=== PATIENT | female | born 1940 | race Caucasian/White ===

== ENCOUNTER 2017-09-03 16:01 | Emergency (ER) | payer OTHER, MEDICAID ==
[~2017-09-03] VITALS: Ht 160 cm; Wt 63.0 kg
[~2017-09-03 16:01] MED LIST: ESTR0.5T PO; PROG100C15 PO
--- NOTE | 2017-09-03 16:04 | NUR ---
PT BIBRA FROM HOME TO E BED 12. PER REPORT HERE FOR FREQUENT FALLS SINCE MONDAY. HX OF STROKE AND ALZHEIMERS. GOWNED AND PLACED ON MONITOR. NAD NOTED. AWAITING MD FERGUSON.
--- NOTE | 2017-09-03 16:31 | NUR ---
RADIOLOGY AT BEDSIDE FOR CHEST XRAY.
[2017-09-03 16:35] LABS: BASOPHILS % (AUTO) 0.3 % (0.0-2.0); EOSINOPHILS % (AUTO) 0.3 % (0.0-6.0); HEMATOCRIT 40 % (33-45); HEMOGLOBIN 13.5 g/dL (11.5-14.8); LYMPHOCYTES % (AUTO) 10.3 % (20.0-44.0); MEAN CORPUSCULAR HEMOGLOBIN 28 PG (26.0-33.0); MEAN CORPUSCULAR HGB CONC 34 g/dl (31.0-36.0); MEAN CORPUSCULAR VOLUME 83 fL (82-100); MONOCYTES # (AUTO) 0.4 /CMM (0.1-1.30); MONOCYTES % (AUTO) 4.3 % (2.0-12.0); NEUTROPHILS # (AUTO) 8.1 /CMM (1.8-8.9); NEUTROPHILS % (AUTO) 84.8 % (43.0-81.0); PLATELET COUNT (AUTO) 267 /CMM (150-450); RDW COEFFICIENT OF VARIATION 12.4 (11.5-15.0); RED BLOOD CELL COUNT(AUTO) 4.85 MIL/uL (4.0-5.2); WHITE BLOOD COUNT (AUTO) 9.5 K/uL (4.3-11.0)
[2017-09-03 16:46] LABS: CALCIUM, SERUM 9.1 mg/dL (8.5-10.1); CARBON DIOXIDE 27 mmol/L (21-32); CHLORIDE 107 mmol/L (98-107); GLUCOSE 155 mg/dL (74-106); POTASSIUM 3.2 mmol/L (3.5-5.1); SODIUM SERUM 143 mmol/L (136-145); UREA NITROGEN, BLOOD 19 mg/dL (7-18)
[2017-09-03 16:49] LABS: INR 1.09 (0.87-1.13); PROTHROMBIN TIME 11.3 SECS (9.5-12.7)
[2017-09-03] MEDS ORDERED: LORAZEPAM INJ 2 MG/ML VIAL ONE (16:49)
[2017-09-03] MEDS: LORAZEPAM INJ 2 MG/ML VIAL IV ONE (16:51)
--- NOTE | 2017-09-03 16:51 | NUR ---
PT IS AGITATED AND RESTLESS. 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 DR FINLEY AWARE. VERBAL ORDER FOR ATIVAN 1MG IVP. VERBAL ORDER CARRIED OUT.
[2017-09-03 16:52] LABS: ALANINE AMINOTRANSFERASE 22 U/L (12-78); ALBUMIN 3.7 g/dL (3.4-5.0); ALKALINE PHOSPHATASE 101 U/L (46-116); ASPARTATE AMINOTRANSFERASE 23 U/L (15-37); BILIRUBIN,DIRECT 0.1 mg/dL (0.0-0.2); BILIRUBIN,TOTAL 0.4 mg/dL (0.2-1.0); TOTAL PROTEIN, SERUM 7.3 g/dL (6.4-8.2)
[2017-09-03 16:57] LABS: TROPONIN I < 0.017 ng/mL (0.00-0.056)
--- NOTE | 2017-09-03 17:19 | NUR ---
PT TO RADIOLOGY FOR HEAD CT SCAN VIA [facility].
--- NOTE | 2017-09-03 17:29 | NUR ---
CALLED [facility], AWAITING FOR A CALL BACK FROM CRISTAL SANTOS.
[2017-09-03 18:14] LABS: APPEARANCE,URINE Clear (CLEAR); BILIRUBIN,URINE SMALL (NEGATIVE); BLOOD, URINE Negative Ery/uL (NEGATIVE); COLOR,URINE Yellow (YELLOW); KETONES,URINE Trace (NEGATIVE); LEUKOCYTE ESTERASE ,URINE Negative (NEGATIVE); NITRITE, URINE Negative (NEGATIVE); PROTEIN,URINE 30 mg/dl (NEGATIVE); UGLUCOSE Negative (NEGATIVE)
--- NOTE | 2017-09-03 18:20 | NUR ---
PATIENT WILL BE TRANSFERRED TO [facility], BLS TRANSPORTATION WILL BE HERE AT 1645 RN TO RN REPORT CAN BE GIVEN TO ACCEPTED BY DR. PERRY
[2017-09-03 18:42] LABS: RBC,URINE 0-2 /HPF (0-2)
[2017-09-03 18:43] LABS: BACTERIA,URINE Many /HPF (None Seen); SQUAMOUS EPITHELIAL CELL,UR Moderate /HPF (None Seen); WBC,URINE 0-2 /HPF (0-3)
[2017-09-03 18:46] LABS: URINE AMORPHOUS URATE Many /HPF (None Seen)
[2017-09-03 19:05] VITALS: BP 144/73
--- NOTE | 2017-09-03 19:05 | NUR ---
TRIED TO CALL REPORT, ADVISED TO CALL AFTER 5 MINS AFTER SHIFT CHANGE.
--- NOTE | 2017-09-03 19:13 | NUR ---
DAUGHTER ALE LEFT # [phone]
--- NOTE | 2017-09-03 19:25 | NUR ---
REPORT GIVEN TO NILE AT [facility]. PT TRANSFERED TO [facility]. STABLE CONDITION.
== END 2017-09-03 19:35 | disposition short-term general hospital (02) ==
LOC: ER 16:02
DX: R53.1 Weakness (principal); R29.6 Repeated falls; F41.9 Anxiety disorder, unspecified; F32.9 Major depressive disorder, single episode, unspecified
CPT/HCPCS: 36415; 70450; 71010; 80048; 80076; 81001; 84484; 85025; 85730; 87086; 93005; 96374; 99285; A4606; J2060; Z7610; 81000-TC